=== PATIENT | female | born 1940 | race African-American/Black ===

== ENCOUNTER → 2016-07-04 | Outpatient (CLI) | payer BC, MEDICARE ==
--- NOTE | 2016-07-04 08:28 | RAD ---
Complete abdominal ultrasound History: Thrombocytopenia. Comparison: None. Procedure: Transabdominal ultrasound images are obtained. Findings: Visualized pancreas is unremarkable. Liver is normal in echogenicity. No focal hepatic masses are identified. Right hepatic lobe measures 12.2 cm in length. Gallbladder has an unremarkable appearance. Common bile duct measures normally at 5 mm in diameter. Spleen is unremarkable. Splenic length is 7.3 cm. Right kidney is normal in size and configuration without hydronephrosis. Left kidney is normal in size and configuration without hydronephrosis. Visualized portions of the aorta and IVC have normal caliber. Impression: Unremarkable abdominal ultrasound.
== END | disposition home or self-care (01) ==
LOC: US 07:03
PROVIDERS: ATTEND Internal Medicine Hematology & Oncology
DX: D69.6 Thrombocytopenia, unspecified (principal); D70.9 Neutropenia, unspecified; J30.2 Other seasonal allergic rhinitis; H83.3X3 Noise effects on inner ear, bilateral
CPT/HCPCS: 76700

== ENCOUNTER → 2017-11-21 | Day surgery (SDC) | payer BC ==
[~2017-11-21] MED LIST: FLUT16SP NS; IV RINGERS,LACTATED 1000ML 1,000 ML IV SCH; LIDOCAINE 2% PF Vial for OR 5 ML VIAL. ONE; METO-239 PO; POTA20TA82 PO; PROPOFOL 20 ML IV ONE; SIMV40TA3 PO; TRIA1TAB3 PO
[2017-11-21 10:15] VITALS: BP 125/70
--- NOTE | 2017-11-21 19:54 | HP ---
ADMIT DATE: 11/21/2017 REFERRING PHYSICIAN: Dr. Shanthi Landaverde. REASON: Colorectal screening. HISTORY OF PRESENT ILLNESS: A 77-year-old female whose past medical history is significant for hypertension, hyperlipidemia, diverticulosis seen for interval colon exam. She has had formed stools. Family history is unrevealing for colon polyps and colon cancer. There is no change in weight or appetite. She is otherwise without additional complaints. PAST MEDICAL HISTORY: Osteoarthrosis, hypertension. FAMILY HISTORY: Breast cancer, cerebrovascular accident, myocardial infarction. SOCIAL HISTORY: She is a smoker, nondrinker. ALLERGIES: LISINOPRIL. MEDICATIONS: TriCor, hydrochlorothiazide, simvastatin, potassium chloride, metoprolol, fluconazole. PHYSICAL EXAMINATION: VITAL SIGNS: Temperature is 98.1, pulse 56, respiratory rate is 18. HEENT: Reveals normocephalic, atraumatic head. Pupils and extraocular muscles are not tested. Sclerae are anicteric. NECK: Supple. LUNGS: Clear. CARDIOVASCULAR: Reveals an S1, S2 without S3, S4 or appreciable murmur. ABDOMEN: Reveals soft abdomen. Normoactive bowel sounds. EXTREMITIES: Reveals no cyanosis, clubbing, edema. IMPRESSION: Colorectal screening is warranted at this time. Risks and benefits of the procedure including risk of hemorrhage and perforation have been discussed. The patient is willing to proceed at this time. ELEUTERIO ALONZO MD DR: ROSSY/chad JOB#: [id number] / [id number]
== END | disposition home or self-care (01) ==
LOC: SURG 07:54
PROVIDERS: ATTEND Internal Medicine Gastroenterology
DX: Z12.11 Encounter for screening for malignant neoplasm of colon (principal); K57.30 Diverticulosis of large intestine without perforation or abscess without bleeding; K64.0 First degree hemorrhoids; I10 Essential (primary) hypertension; E78.5 Hyperlipidemia, unspecified; M19.90 Unspecified osteoarthritis, unspecified site; F17.200 Nicotine dependence, unspecified, uncomplicated; Z88.8 Allergy status to other drugs, medicaments and biological substances; Z79.899 Other long term (current) drug therapy; Z82.49 Family history of ischemic heart disease and other diseases of the circulatory system; Z82.3 Family history of stroke; Z80.3 Family history of malignant neoplasm of breast
CPT/HCPCS: G0121; J2001; J2704; 45378

== ENCOUNTER → 2018-02-02 | Outpatient (CLI) | payer BC ==
[2017-11-21 10:15] VITALS: BP 125/70
[~2018-02-02] MED LIST changes: -IV RINGERS,LACTATED 1000ML 1,000 ML IV SCH; -LIDOCAINE 2% PF Vial for OR 5 ML VIAL. ONE; -PROPOFOL 20 ML IV ONE
--- NOTE | 2018-02-02 11:44 | RAD ---
DATE: 02/02/2018 EXAM: MAMMO BEVERLY SCREENING BILATERAL HISTORY: Routine screening COMPARISON: 01/30/2017 This study was interpreted with the benefit of Computerized Aided Detection (CAD). Breast Density: SCATTERED The breast parenchyma shows scattered fibroglandular densities. Breast parenchyma level B. FINDINGS: 2-D and 3-D tomosynthesis imaging was performed in CC and MLO projections. An old breast biopsy marker is present laterally in the left breast. No spiculated mass or architectural distortion is evident. No suspicious microcalcifications are seen. IMPRESSION: Stable mammograms without evidence of malignancy. BI-RADS CATEGORY: 1 NEGATIVE RECOMMENDED FOLLOW-UP: 12M 12 MONTH FOLLOW-UP PQRS compliance statement: Patient information was entered into a reminder system with a target due date for the next mammogram. Mammography is a sensitive method for finding small breast cancers, but it does not detect them all and is not a substitute for careful clinical examination. A negative mammogram does not negate a clinically suspicious finding and should not result in delay in biopsying a clinically suspicious abnormality. "Our facility is accredited by the [employer] Mammography [employer]."
== END | disposition home or self-care (01) ==
LOC: MAMMO 10:25
PROVIDERS: ATTEND Family Medicine
DX: Z12.31 Encounter for screening mammogram for malignant neoplasm of breast (principal)
CPT/HCPCS: 77063; 77067

== ENCOUNTER → 2019-02-03 | Outpatient (CLI) | payer BC ==
[2017-11-21 10:15] VITALS: BP 125/70
[~2019-02-03] MED LIST changes: +SIMV40TA18 PO; -SIMV40TA3 PO
--- NOTE | 2019-02-03 11:45 | RAD ---
DATE: 02/03/2019. EXAM: MAMMO BEVERLY SCREENING BILATERAL. HISTORY: Routine mammographic screening. COMPARISON: 02/02/2018. This study was interpreted with the benefit of Computerized Aided Detection (CAD). FINDINGS: Breast Density: SCATTERED The breast parenchyma shows scattered fibroglandular densities. Breast parenchyma level B.. There is a postbiopsy clip superolaterally on the left. The parenchymal pattern is stable. There are no suspicious masses, microcalcifications or architectural distortion. BI-RADS CATEGORY: 2 BENIGN FINDING(S). RECOMMENDED FOLLOW-UP: 12M 12 MONTH FOLLOW-UP. PQRS compliance statement: Patient information was entered into a reminder system with a target due date 02/04/2020 for the next mammogram. Mammography is a sensitive method for finding small breast cancers, but it does not detect them all and is not a substitute for careful clinical examination. A negative mammogram does not negate a clinically suspicious finding and should not result in delay in biopsying a clinically suspicious abnormality. "Our facility is accredited by the [employer] Mammography Program."
== END | disposition home or self-care (01) ==
LOC: MAMMO 07:58
PROVIDERS: ATTEND Family Medicine
DX: Z12.31 Encounter for screening mammogram for malignant neoplasm of breast (principal)
CPT/HCPCS: 77063; 77067

== ENCOUNTER → 2020-07-25 | Outpatient (CLI) | payer BC, MEDICARE ==
[2017-11-21 10:15] VITALS: BP 125/70
[~2020-07-25] MED LIST changes: +POTA20TA4 PO; -POTA20TA82 PO
--- NOTE | 2020-07-25 16:42 | RAD ---
PROCEDURE: MG BILAT SCREEN+BEVERLY HISTORY: The patient is 80 years old and is seen for Reason: Screening / Spl. Instructions: / Histor y: . COMPARISON: February 03, 2019 TECHNIQUE: CC and MLO views of both breasts were obtained. Images were processed by the [employer] computer-aided detection system. DENSITY: There are scattered fibroglandular densities. FINDINGS: No developing mass, suspicious calcifications or architectural distortion. Left upper ou ter biopsy marker. Unchanged right upper outer breast mass, likely intramammary lymph node IMPRESSION: Negative. No evidence of malignancy. Recommend annual screening mammograms per [employer] guidelines. She will be due in one year. BI-RADS category 2 Benign Patient entered into a reminder system for annual screening mammogram. Electronically signed by: Turner Easley DO (07/25/2020 4:39 PM) [id number]
== END ==
LOC: MAMMO 15:05
PROVIDERS: ATTEND Family Medicine
DX: Z12.31 Encounter for screening mammogram for malignant neoplasm of breast (principal)
CPT/HCPCS: 77063; 77067

== ENCOUNTER → 2021-07-25 | Outpatient (CLI) | payer MEDICARE ==
[2017-11-21 10:15] VITALS: BP 125/70
--- NOTE | 2021-07-25 10:45 | RAD ---
Bilateral digital screening 2-D and 3-D (tomosynthesis) mammogram: Reason for examination: Routine screening. Comparison is made to previous mammograms from 02/03/2019 and 07/25/2020. Bilateral mammograms in CC and oblique projections were obtained with 2-D imaging and 3-D tomosynthes is imaging and reviewed on the workstation. Interpretation was made with the benefit of CAD. Findings: Breast density: Category B. There are scattered areas of fibroglandular density. There are no suspicious masses, malignant appearing calcifications or architectural distortion. Impression: No evidence of malignancy. ASSESSMENT: BI-RADS 1. Negative. Recommendations: Routine screening mammograms. This patient's information has been entered into a reminder system for the patient to be notified wit h the results of her examination and a target date for the next mammogram. Electronically signed by: Fabiola Davies MD (07/25/2021 10:43 AM) [id number]
== END ==
LOC: MAMMO 10:45
PROVIDERS: ATTEND Family Medicine
DX: Z12.31 Encounter for screening mammogram for malignant neoplasm of breast (principal)
CPT/HCPCS: 77063; 77067